=== PATIENT | male | born 1985 | race Caucasian/White ===

== ENCOUNTER 2019-02-06 08:51 | Emergency (ER) | payer OTHER ==
[2019-02-06 09:20] LABS: Absolute Lymphocytes (CBC) 1.2 K/uL (0.7-4.9); Basophils % 0.3 % (0-1.3); Hematocrit 43.7 % (39.6-49.0); Lymphocytes % 22.2 % (15.3-44.8); MPV 8.9 fL (7.6-11.3); RBC Red Blood Cell Count 5.06 M/uL (4.33-5.43)
--- NOTE | 2019-02-06 09:25 | RAD REPORT ---
EXAM DESCRIPTION: RAD - Chest Single View - 02/06/2019 9:10 am CLINICAL HISTORY: CHEST PAIN Chest pain. COMPARISON: No comparisons FINDINGS: Portable technique limits examination quality. The lungs are grossly clear. The heart is normal in size. No displaced fractures. IMPRESSION: No acute intrathoracic process suspected.
[2019-02-06 09:35] LABS: ALT/SGPT 39 U/L (12-78); AST/SGOT 27 U/L (15-37); Alkaline Phosphatase 76 U/L (45-117); BUN Blood Urea Nitrogen 14 mg/dL (7-18); Bicarbonate 29 mmol/L (21-32); Bilirubin Direct 0.1 mg/dL (0-0.2); Bilirubin Total 0.3 mg/dL (0.2-1.0); Glucose Level 93 mg/dL (74-106); NT PRO-BNP 9 pg/mL (<125); Potassium 3.7 mmol/L (3.5-5.1); Protein, Total 7.7 g/dL (6.4-8.2); Sodium Level 140 mmol/L (136-145); Troponin (Emerg Dept Use Only) < 0.02 ng/mL (0.0-0.045)
--- NOTE | 2019-02-06 11:13 | RAD REPORT ---
EXAM DESCRIPTION: CT - Angio Aorta For Dissection - 02/06/2019 10:52 am CLINICAL HISTORY: Chest pain radiating to the back. CHEST PAIN COMPARISON: No comparisons TECHNIQUE: CT angiography of the aorta was performed with MIPs. All CT scans are performed using dose optimization technique as appropriate and may include automated exposure control or mA/KV adjustment according to patient size. FINDINGS: A left aortic arch is present with normal branching pattern of the great vessels.No acute aortic finding is seen such as aneurysm, penetrating ulcer or dissection. The celiac axis, SMA, SANYA and renal arteries are widely patent. No evidence of pulmonary embolism. The lungs are clear. The liver demonstrates no focal mass or biliary dilatation.The spleen, pancreas, adrenal glands and k idneys are within normal limits for arterial phase imaging. No bowel obstruction, free fluid or abscess.No pathologic enlarged lymphadenopathy identified. No fracture or worrisome bone lesion seen. IMPRESSION: No acute aortic finding is demonstrated.
--- NOTE | 2019-02-06 11:42 | EDPHYS ---
Physician Documentation [facility] Name: Sara Ash Age: 33 yrs Sex: Male : 1985 Arrival Date: 02/06/2019 Time: 08:52 Bed 2 Private MD: ED Physician Gopi Kelly HPI: 02/06 10:41 This 33 yrs old Male presents to ER via EMS with complaints of Chest rn Tightness - pinching. 10:41 The patient or guardian reports chest pain that is located primarily in the anterior rn chest wall, left. The pain does not radiate. Associated signs and symptoms: Pertinent positives: tingling left arm, Pertinent negatives: abdominal pain, cough, diaphoresis, dizziness, lower extremity swelling, lightheadedness, near syncope, palpitations, recent travel, shortness of breath, syncope, vomiting. The chest pain is described as sharp, pinching. Duration: The patient or guardian reports multiple episodes, that are intermittent. Modifying factors: The symptoms are alleviated by nothing. the symptoms are aggravated by nothing. Severity of pain: At its worst the pain was mild in the emergency department the pain is unchanged. The patient has not experienced similar symptoms in the past. Reports at work, felt left sided chest "pinching", began today, not worse or better with anything, reports feels under left breast, no fever/vomiting/sob/abd pain/syncope. No cough. No trauma. No famhx of early cardiac disease. EMS states BP was elevated, came down without intervention. Non-smoker. Parents in 50s from lung cancer. . Historical: - Allergies: 08:55 No Known Allergies; sg - Home Meds: 10:08 None [Active]; sg - PMHx: 10:08 None; sg - PSHx: 10:08 None; sg - Immunization history:: Adult Immunizations not up to date. - Social history:: Smoking status: Patient/guardian denies using tobacco. - Ebola Screening: : Patient negative for fever greater than or equal to 101.5 degrees Fahrenheit, and additional compatible Ebola Virus Disease symptoms Patient denies exposure to infectious person Patient denies travel to an Ebola-affected area in the 21 days before illness onset No symptoms or risks identified at this time. - Family history:: not pertinent. - Hospitalizations: : No recent hospitalization is reported. ROS: 10:41 Constitutional: Negative for fever, chills, and weight loss, Eyes: Negative for injury, rn pain, redness, and discharge, Neck: Negative for injury, pain, and swelling, Cardiovascular: Negative for palpitations, and edema, Respiratory: Negative for shortness of breath, cough, wheezing, and pleuritic chest pain, Abdomen/GI: Negative for abdominal pain, nausea, vomiting, diarrhea, and constipation, MS/Extremity: Negative for injury and deformity, Skin: Negative for injury, rash, and discoloration, Neuro: Negative for headache, weakness, numbness, and seizure. Exam: 10:25 ECG was reviewed by the Attending Physician. rn 10:41 Constitutional: This is a well developed, well nourished patient who is awake, alert, rn and in no acute distress. Head/Face: Normocephalic, atraumatic. Eyes: Pupils equal round and reactive to light, extra-ocular motions intact. Lids and lashes normal. Conjunctiva and sclera are non-icteric and not injected. Cornea within normal limits. Periorbital areas with no swelling, redness, or edema. Neck: Trachea midline, no thyromegaly or masses palpated, and no cervical lymphadenopathy. Supple, full range of motion without nuchal rigidity, or vertebral point tenderness. No Meningismus. Cardiovascular: Regular rate and rhythm with a normal S1 and S2. No gallops, murmurs, or rubs. No JVD. No pulse deficits. Respiratory: Lungs have equal breath sounds bilaterally, clear to auscultation. No increased work of breathing, no retractions or nasal flaring. Abdomen/GI: Soft, non-tender. No evidence of tenderness throughout. MS/ Extremity: Pulses equal, no cyanosis. Neurovascular intact. Full, normal range of motion. Equal circumference. Neuro: Awake and alert, GCS 15, oriented to person, place, time, and situation. Cranial nerves II-XII grossly intact. Motor strength 5/5 in all extremities. Sensory grossly intact. Vital Signs: 08:54 BP 154 / 84; Pulse 75; Resp 18; Temp 98.8; Pulse Ox 100% on R/A; Weight 79.38 kg; sg Height 5 ft. 11 in. (180.34 cm); Pain 6/10; 09:39 BP 138 / 71; Pulse 75; Resp 19; Pulse Ox 96% on R/A; tw2 12:30 BP 130 / 77; Pulse 72; Resp 16; Pulse Ox 99% on R/A; sg 08:54 Body Mass Index 24.41 (79.38 kg, 180.34 cm) sg MDM: 08:52 Patient medically screened. rn 11:40 Differential diagnosis: acute pericarditis, chest wall pain, costochondritis, rn esophagitis, gastritis, gastroesophageal reflux disease (GERD), pancreatitis, pericarditis, pleurisy, pneumonia, pneumothorax, pulmonary embolus, thoracic aortic disection. Data reviewed: vital signs, nurses notes, lab test result(s), EKG, radiologic studies, CT scan, plain films, and as a result, I will discharge patient. Counseling: I had a detailed discussion with the patient and/or guardian regarding: the historical points, exam findings, and any diagnostic results supporting the discharge/admit diagnosis, lab results, radiology results, the need for outpatient follow up, to return to the emergency department if symptoms worsen or persist or if there are any questions or concerns that arise at home. Response to treatment: the patient's symptoms have mildly improved after treatment, and as a result, I will discharge patient. Special discussion: Based on the patient's history, exam, and Dx evaluation, there is no indication for emergent intervention or inpatient Tx. It is understood by the patient/guardian that if the Sx's persist or worsen they need to return immediately for re-evaluation. I discussed with the patient/guardian in detail that at this point there is no indication for admission to the hospital. It is understood, however, that if the symptoms persist or worsen the patient needs to return immediately for re-evaluation. Based on the history and exam findings, there is no indication for further emergent testing or inpatient evaluation. I discussed with the patient/guardian the need to see the primary care provider for further evaluation of the symptoms. ED course: CT aorta neg, trop neg x 2, normal ECG, will dc home. . 11:42 Counseling: I had a detailed discussion with the patient and/or guardian regarding: the rn presence of at least one elevated blood pressure reading (>120/80) during this emergency department visit. Special discussion: I have referred the patient to see his PCP for further evaluation of high blood pressure. 02/06 08:53 Order name: Basic Metabolic Panel; Complete Time: 09:58 rn 02/06 08:53 Order name: CBC with Diff; Complete Time: 09:35 rn 02/06 08:53 Order name: LFT's; Complete Time: 09:58 rn 02/06 08:53 Order name: NT PRO-BNP; Complete Time: 09:58 rn 02/06 08:53 Order name: Troponin (emerg Dept Use Only); Complete Time: 09:58 rn 02/06 08:53 Order name: D-Dimer; Complete Time: 10:23 rn 02/06 08:53 Order name: XRAY Chest (1 view); Complete Time: 09:35 rn 02/06 08:53 Order name: EKG; Complete Time: 08:54 rn 02/06 08:53 Order name: Cardiac monitoring; Complete Time: 08:55 rn 02/06 08:53 Order name: EKG - Nurse/Tech; Complete Time: 08:55 rn 02/06 08:53 Order name: IV Saline Lock; Complete Time: 08:55 rn 02/06 08:53 Order name: Labs collected and sent; Complete Time: 08:55 rn 02/06 10:38 Order name: CT Aorta for Dissection; Complete Time: 11:16 rn 02/06 10:59 Order name: Troponin (emerg Dept Use Only); Complete Time: 11:39 sg 02/06 08:53 Order name: O2 Per Protocol; Complete Time: 08:55 02/06 08:53 Order name: O2 Sat Monitoring; Complete Time: 08:56 rn EC:25 Rate is 77 beats/min. Rhythm is regular. QRS Gordon is Normal. VT interval is normal. QRS rn interval is normal. QT interval is normal. No Q waves. T waves are Normal. No ST changes noted. Clinical impression: Normal ECG. Interpreted by me. Reviewed by me. Administered Medications: No medications were administered Disposition: 02/06/19 11:41 Discharged to Home. Impression: Chest pain, unspecified. - Condition is Stable. - Discharge Instructions: Nonspecific Chest Pain, Hypertension. - Medication Reconciliation Form, Thank You Letter, Antibiotic Education, Prescription Opioid Use, Work release form form. - Follow up: Private Physician; When: As needed; Reason: Recheck today's complaints, Re-evaluation by your physician. - Problem is new. - Symptoms have improved. Signatures: Dispatcher [employer] EDGodfrey Villarreal RN RN Gopi Kelly MD MD rn Smirch, Shelby, RN RN ss Corrections: (The following items were deleted from the chart) 12:33 11:41 02/06/2019 11:41 Discharged to Home. Impression: Chest pain, unspecified. ss Condition is Stable. Forms are Work release form, Medication Reconciliation Form, Thank You Letter, Antibiotic Education, Prescription Opioid Use. Follow up: Private Physician; When: As needed; Reason: Recheck today's complaints, Re-evaluation by your physician. Problem is new. Symptoms have improved. rn
--- NOTE | 2019-02-06 11:42 | ER ---
Nurse's Notes [facility] Name: Sara Ash Age: 33 yrs Sex: Male : 1985 Arrival Date: 02/06/2019 Time: 08:52 Bed 2 Private MD: Diagnosis: Chest pain, unspecified Presentation: 02/06 08:52 Presenting complaint: EMS states: This morning pt reports having a "pinching" feeling sg under the left breast, felt short of breath and nauseated, denies Cough/Fever/V/Diarrhea at this time. Transition of care: patient was not received from another setting of care. Onset of symptoms was February 06, 2019. Risk Assessment: Do you want to hurt yourself or someone else?. Initial Sepsis Screen: Does the patient meet any 2 criteria? No. Patient's initial sepsis screen is negative. Does the patient have a suspected source of infection? No. Patient's initial sepsis screen is negative. Care prior to arrival: Medication(s) given: ASA, 81 mg, x 1, IV initiated. 18 GA, in the right antecubital area. 08:52 Method Of Arrival: EMS: [facility] sg 08:52 Acuity: BRENDON 3 sg Triage Assessment: 08:52 General: Appears in no apparent distress. comfortable, well groomed, well developed, sg well nourished, Behavior is calm, cooperative, appropriate for age. Pain: Complains of pain in left breast Quality of pain is described as pinching. EENT: No signs and/or symptoms were reported regarding the EENT system. Neuro: Level of Consciousness is awake, alert, obeys commands, Oriented to person, place, time. Cardiovascular: Heart tones S1 S2 present Capillary refill is brisk in bilateral fingers Patient's skin is warm and dry. Chest pain is described as vague, is located in left anterior chest wall. Respiratory: Airway is patent Respiratory effort is even, unlabored, Respiratory pattern is regular, symmetrical, Denies cough, shortness of breath labored breathing, pain with respiration, pain with cough, pain with movement, air hunger. GI: Abdomen is round non-distended, Reports tolerance of fluids, tolerance of food. : No signs and/or symptoms were reported regarding the genitourinary system. Derm: Skin is pink, warm \\T\\ dry. Musculoskeletal: Circulation, motion, and sensation intact. Range of motion: intact in all extremities. Historical: - Allergies: 08:55 No Known Allergies; sg - Home Meds: 10:08 None [Active]; sg - PMHx: 10:08 None; sg - PSHx: 10:08 None; sg - Immunization history:: Adult Immunizations not up to date. - Social history:: Smoking status: Patient/guardian denies using tobacco. - Ebola Screening: : Patient negative for fever greater than or equal to 101.5 degrees Fahrenheit, and additional compatible Ebola Virus Disease symptoms Patient denies exposure to infectious person Patient denies travel to an Ebola-affected area in the 21 days before illness onset No symptoms or risks identified at this time. - Family history:: not pertinent. - Hospitalizations: : No recent hospitalization is reported. Screenin:11 Abuse screen: Denies threats or abuse. Nutritional screening: No deficits noted. tw2 Tuberculosis screening: No symptoms or risk factors identified. Fall Risk None identified. Assessment: 09:13 Pain: Pain does not radiate. Pain began suddenly. Cardiovascular:. tw2 09:39 Reassessment: Patient appears in no apparent distress at this time. No changes from tw2 previously documented assessment. Patient and/or family updated on plan of care and expected duration. Pain level reassessed. Patient is alert, oriented x 3, equal unlabored respirations, skin warm/dry/pink. 12:30 Reassessment: Patient appears in no apparent distress at this time. Patient and/or sg family updated on plan of care and expected duration. Pain level reassessed. Patient is alert, oriented x 3, equal unlabored respirations, skin warm/dry/pink. Patient states feeling better. General: Behavior is calm, cooperative, appropriate for age. Neuro: Level of Consciousness is awake, alert, obeys commands, Oriented to person, place, time, Physician Relations Manager are equal bilaterally Speech is normal, Facial symmetry appears normal. Respiratory: Airway is patent Respiratory effort is even, unlabored, Respiratory pattern is regular, symmetrical. GI: No signs and/or symptoms were reported involving the gastrointestinal system. : No signs and/or symptoms were reported regarding the genitourinary system. EENT: No signs and/or symptoms were reported regarding the EENT system. Derm: Skin is pink, warm \\T\\ dry. Musculoskeletal: Circulation, motion, and sensation intact. Range of motion: intact in all extremities. Vital Signs: 08:54 BP 154 / 84; Pulse 75; Resp 18; Temp 98.8; Pulse Ox 100% on R/A; Weight 79.38 kg; sg Height 5 ft. 11 in. (180.34 cm); Pain 6/10; 09:39 BP 138 / 71; Pulse 75; Resp 19; Pulse Ox 96% on R/A; tw2 12:30 BP 130 / 77; Pulse 72; Resp 16; Pulse Ox 99% on R/A; sg 08:54 Body Mass Index 24.41 (79.38 kg, 180.34 cm) ED Course: 08:52 Patient arrived in ED. sg 08:52 Gopi Kelly MD is Attending Physician. rn 08:53 Bed in low position. telemetry monitor on. Pulse ox on. NIBP on. tw2 08:54 Triage completed. sg 08:54 Arm band placed on. sg 08:55 Godfrey Ervin RN is Primary Nurse. sg 09:05 EKG done, by product technician. reviewed by Gopi Kelly MD. tc 09:10 XRAY Chest (1 view) In Process Unspecified. EDMS 09:12 Patient maintains SpO2 saturation greater than 95% on room air. tw2 10:52 CT Aorta for Dissection In Process Unspecified. EDMS 12:30 No provider procedures requiring assistance completed. IV discontinued, intact, sg bleeding controlled, No redness/swelling at site. Pressure dressing applied. Administered Medications: No medications were administered Outcome: 11:41 Discharge ordered by . rn 12:30 Discharged to home ambulatory, with family. sg 12:30 Condition: good 12:30 Discharge instructions given to patient, Instructed on discharge instructions, follow up and referral plans. safety practices, Demonstrated understanding of instructions, follow-up care. 12:33 Patient left the ED. Signatures: Dispatcher [employer] EDMS Godfrey Ervin, RN Gopi Robbins MD MD rn Smirch, Shelby, RN RN Caitlin Arora, certified ophthalmic medical technician EKG Ttc [place] Doe RN RN tw2
[2019-02-06 13:01] VITALS: TEMP 98.8
[2019-02-06 13:02] VITALS: BP 138/71; O2SAT 96
--- NOTE | 2019-02-06 15:43 | EKG ---
Test Date: 2019-02-06 Test Time: 08:48:26 Net Front End Developer: MARY MEASUREMENT RESULTS: Intervals: Rate: 77 MO: 164 QRSD: 110 QT: 368 QTc: 416 [place]: P: 62 MO: 164 QRS: 55 T: 54 INTERPRETIVE STATEMENTS: Normal sinus rhythm Normal ECG No previous ECG available for comparison Electronically Signed On 02-06-19 15:42:51 CDT by Federico Gooden
== END 2019-02-06 12:33 | disposition home or self-care (01) ==
LOC: ER 08:51
DX: R07.9 Chest pain, unspecified (principal)
CPT/HCPCS: 93005; 85025; 80048; 36415; 85379; 80076; 84484 ×2; 83880; 71275; 74175; 71045; 99285; Q9967